=== PATIENT | male | born 1965 | race Caucasian/White ===

== ENCOUNTER 2019-07-07 10:52 | Emergency (ER) | payer BC ==
[~2019-07-07] VITALS: Ht 180.3 cm; Wt 68.0 kg
[2019-07-07 10:52] VITALS: BP_SYST 131
[2019-07-07] MEDS ORDERED: LIDOCAINE 1% 10 MG/ML, 20 ML MDV INJ ONE (11:15)
[2019-07-07] MEDS ORDERED: BACITRACIN 1 GM OINT TP ONE (11:15)
[2019-07-07] MEDS ORDERED: DIPH-TET-PERTUS Vaccine 0.5 ML VIAL (ADACEL) I.M. ONE (11:15)
[2019-07-07 12:23] VITALS: BP_SYST 127
== END 2019-07-07 12:20 | disposition home or self-care (01) ==
LOC: SED 10:52
DX: S61.211A Laceration without foreign body of left index finger without damage to nail, initial encounter (principal); Y08.89XA Assault by other specified means, initial encounter; Y93.89 Activity, other specified; Y92.89 Other specified places as the place of occurrence of the external cause; Y99.8 Other external cause status
CPT/HCPCS: 12004; 73130; 90471; 90715; 99283; J2001